=== PATIENT | female | born 1990 | race Caucasian/White ===

== ENCOUNTER 2016-06-20 17:53 | Emergency (ER) | payer MEDICARE ==
[2016-06-20 18:53] LABS: HEMOGLOBIN 12.2 gm/dl (12.3-15.3); RED BLOOD COUNT 4.32 M/UL (4.00-5.10); WHITE BLOOD COUNT 6.9 K/UL (4.5-11.0)
[2016-06-20 19:15] LABS: BUN/CREATININE RATIO 12 (0-10)
== END 2016-06-20 21:00 | disposition home or self-care (01) ==
LOC: ER1 17:53
PROVIDERS: Nurse Practitioner Family
DX: O23.41 Unspecified infection of urinary tract in pregnancy, first trimester (principal); O99.331 Smoking (tobacco) complicating pregnancy, first trimester; F17.210 Nicotine dependence, cigarettes, uncomplicated; Z3A.01 Less than 8 weeks gestation of pregnancy; Z88.5 Allergy status to narcotic agent
CPT/HCPCS: 36415; 76817; 80053; 81001; 82150; 83690; 84702; 84703; 85025; 86900; 86901; 87077; 87086; 87186; 99284